=== PATIENT | female | born 1985 | race Two or more races ===

== ENCOUNTER 2020-03-13 19:56 | Inpatient (IN) | payer OTHER, MEDICAID ==
[~2020-03-13] VITALS: Ht 165.1 cm; Wt 85.4 kg
[2020-03-13] MEDS ORDERED: SODIUM CHLORIDE 0.9% 1,000 ML IV ONE ×2 (20:30→21:06)
[2020-03-13] MEDS ORDERED: ONDANSETRON HCL 4MG/2ML INJ IV STA (21:06)
[2020-03-13] MEDS ORDERED: AZITHROMYCIN 500 MG in DEXT 5% WATER 250 ML IV SCH (21:15)
[2020-03-13 21:43] LABS: BASOPHILS % 0.5 % (0.0-2.0); EOSINOPHILS % 0.2 % (0.0-5.0); HEMATOCRIT. 28.4 % (36.0-48.0); HEMOGLOBIN. 9.8 g/dL (12.0-16.0); LYMPHOCYTES % 14.1 % (20.0-50.0); MEAN CORPUSCULAR HEMOGLOBIN 31.8 pg (28.0-32.0); MEAN PLATELET VOLUME 7.8 fl (7.4-10.4); MONOCYTES % 4.7 % (2.0-8.0); NEUTROPHILS % 80.5 % (40.0-76.0); PLATELET 346 x1000/uL (130-400); RED BLOOD CELL COUNT 3.09 mill/uL (4.2-5.4); RED CELL DISTRIBUTION WIDTH 12.7 % (11.6-14.6)
[2020-03-13 21:46] LABS: CLARITY URINE CLOUDY (CLEAR); COLOR URINE YELLOW (YELLOW); KETONES URINE 1+ (NEGATIVE); LEUKOCYTE ESTERASE URINE 2+ (NEGATIVE); NITRITE URINE NEGATIVE (NEGATIVE); OCCULT BLOOD URINE 3+ (NEGATIVE); PROTEIN URINE 1+ (NEGATIVE); SPECIFIC GRAVITY URINE 1.031 (1.005-1.030)
[2020-03-13 21:50] LABS: CHLORIDE 106 mEq/L (98-107)
[2020-03-13 21:53] LABS: D-DIMER 0.34 mg/L FEU (<0.50); INR 1.3; PROTHROMBIN TIME 13.1 sec (9.6-11.0)
[2020-03-13 21:54] LABS: HCG SCREEN NEGATIVE
[2020-03-13 22:06] LABS: *AMPHETAMINES SCREEN URINE NEGATIVE (NEGATIVE); *BARBITURATES SCREEN URINE NEGATIVE (NEGATIVE); PHENCYCLIDINE URINE SCREEN NEGATIVE (NEGATIVE)
[2020-03-13 22:08] LABS: *BENZODIAZEPINES SCREEN URINE NEGATIVE (NEGATIVE); *COCAINE SCREEN URINE NEGATIVE (NEGATIVE); METHADONE URINE SCREEN NEGATIVE (NEGATIVE); OPIATES URINE SCREEN NEGATIVE (NEGATIVE)
[2020-03-13 22:09] LABS: CANNABINOID URINE SCREEN PRESUMTIVE POSITIVE (NEGATIVE)
[2020-03-13] MEDS ORDERED: ACETAMINOPHEN 325MG TABLET PO PRN (23:00)
[2020-03-13] MEDS ORDERED: MAGNESIUM/ALUMINUM HYDROXIDE/SIMETHICONE 30ML UDC PO PRN (23:00)
[2020-03-13] MEDS ORDERED: ONDANSETRON HCL 4MG/2ML INJ IV PRN (23:00)
[2020-03-13] MEDS ORDERED: HYDROCODONE/ACETAMINOPHEN 5/325MG TABLET PO PRN (23:00)
[2020-03-13] MEDS ORDERED: IPRATROPIUM/ALBUTEROL 0.5-3(2.5)MG/3ML NEB NEB PRN (23:00)
[2020-03-13] MEDS ORDERED: IOHEXOL-300 100 ML BOTTLE ONE (23:18)
[2020-03-14 01:43] LABS: HEPATITIS B SURFACE ANTIGEN NEGATIVE
[2020-03-14] MEDS: SODIUM CHLORIDE 0.9% 1,000 ML IV SCH ×3 (01:54→19:00)
[2020-03-14] MEDS: METRONIDAZOLE 500 MG PREMIX 100 ML IV SCH ×4 (02:10→23:24)
[2020-03-14 02:12] LABS: HEPATITIS A AB IGM NEGATIVE (NEGATIVE)
[2020-03-14] MEDS ORDERED: CEFTRIAXONE 1,000 MG in DEXTROSE 5% WATER 50 ML IV SCH ×3 (04:00)
[2020-03-14 05:26] LABS: BASOPHILS % 0.6 % (0.0-2.0); EOSINOPHILS % 0.3 % (0.0-5.0); LYMPHOCYTES % 20.5 % (20.0-50.0); MEAN CORPUSCULAR HEMOGLOBIN 32.6 pg (28.0-32.0); MEAN PLATELET VOLUME 7.8 fl (7.4-10.4); MONOCYTES % 8.5 % (2.0-8.0); NEUTROPHILS % 70.1 % (40.0-76.0); PLATELET 246 x1000/uL (130-400); RED CELL DISTRIBUTION WIDTH 12.7 % (11.6-14.6)
[2020-03-14 05:31] LABS: CHLORIDE 115 mEq/L (98-107)
[2020-03-14 05:33] LABS: ETHANOL BLOOD < 10 mg/dL
[2020-03-14 05:38] LABS: LDL CHOLESTEROL 49 mg/dL (5-100)
[2020-03-14 05:39] LABS: HDL CHOLESTEROL 38 mg/dL (40-59); TOTAL IRON BINDING CAPACITY 230 ug/dL (250-450)
[2020-03-14 05:40] LABS: CREATINE KINASE 76 IU/L (26-192); HEMATOCRIT. 19.3 % (36.0-48.0); HEMOGLOBIN. 6.8 g/dL (12.0-16.0)
[2020-03-14 05:41] LABS: CREATINE KINASE MB FRACTION < 1.0 ng/mL (0.5-3.6)
[2020-03-14 10:17] VITALS: BP 115/50
[2020-03-14 12:00] VITALS: BP_SYST 101; BP_SYST 104; BP_DIAS 44; BP_DIAS 51
[2020-03-14 17:56] LABS: MEAN CORPUSCULAR HEMOGLOBIN 32.3 pg (28.0-32.0); MEAN CORPUSCULAR VOLUME 92.8 fL (81.0-99.0); PLATELET 236 x1000/uL (130-400); RED BLOOD CELL COUNT 2.04 mill/uL (4.2-5.4); RED CELL DISTRIBUTION WIDTH 12.7 % (11.6-14.6)
[2020-03-14 17:59] LABS: HEMOGLOBIN 6.6 g/dL (12.0-16.0)
[2020-03-14 18:13] LABS: CREATINE KINASE 85 IU/L (26-192)
[2020-03-14 18:14] LABS: CREATINE KINASE MB FRACTION < 1.0 ng/mL (0.5-3.6)
[2020-03-14 20:00] VITALS: BP 112/61
[2020-03-15] VITALS (15 sets, daily range): BP systolic 95–137; BP diastolic 35–91
[2020-03-15] MEDS: SODIUM CHLORIDE 0.9% 1,000 ML IV SCH ×2 (05:00→14:06)
[2020-03-15 05:08] LABS: HIV SCREEN 4G Non Reactive (Non Reactive)
[2020-03-15] MEDS: METRONIDAZOLE 500 MG PREMIX 100 ML IV SCH ×3 (06:34→20:38)
[2020-03-15 10:08] LABS: BASOPHILS % 0.5 % (0.0-2.0); EOSINOPHILS % 1.4 % (0.0-5.0); LYMPHOCYTES % 24.4 % (20.0-50.0); MEAN CORPUSCULAR HEMOGLOBIN 32.3 pg (28.0-32.0); MEAN CORPUSCULAR VOLUME 93.6 fL (81.0-99.0); MEAN PLATELET VOLUME 7.5 fl (7.4-10.4); MONOCYTES % 7.3 % (2.0-8.0); NEUTROPHILS % 66.4 % (40.0-76.0); PLATELET 275 x1000/uL (130-400); RED BLOOD CELL COUNT 2.12 mill/uL (4.2-5.4); RED CELL DISTRIBUTION WIDTH 12.6 % (11.6-14.6)
[2020-03-15 10:16] LABS: HEMATOCRIT. 19.9 % (36.0-48.0); HEMOGLOBIN. 6.8 g/dL (12.0-16.0)
[2020-03-15 10:17] LABS: CHLORIDE 113 mEq/L (98-107)
[2020-03-16] VITALS (12 sets, daily range): BP systolic 91–148; BP diastolic 35–77
[2020-03-16 01:51] LABS: FOLIC ACID (FOLATE) SERUM >20 ng/mL ng/mL (>5.38)
[2020-03-16 02:03] LABS: VITAMIN B12 SERUM 1530 pg/mL (211-911)
[2020-03-16] MEDS: SODIUM CHLORIDE 0.9% 1,000 ML IV SCH ×2 (03:32→21:04)
[2020-03-16] MEDS: METRONIDAZOLE 500 MG PREMIX 100 ML IV SCH ×3 (05:23→20:57)
[2020-03-16 07:17] LABS: BASOPHILS % 0.6 % (0.0-2.0); EOSINOPHILS % 2.7 % (0.0-5.0); HEMATOCRIT. 22.8 % (36.0-48.0); HEMOGLOBIN. 7.9 g/dL (12.0-16.0); LYMPHOCYTES % 24.4 % (20.0-50.0); MEAN CORPUSCULAR HEMOGLOBIN 31.7 pg (28.0-32.0); MEAN CORPUSCULAR VOLUME 91.3 fL (81.0-99.0); MEAN PLATELET VOLUME 7.6 fl (7.4-10.4); MONOCYTES % 7.3 % (2.0-8.0); PLATELET 269 x1000/uL (130-400); RED CELL DISTRIBUTION WIDTH 13.7 % (11.6-14.6)
[2020-03-16 07:22] LABS: CHLORIDE 114 mEq/L (98-107)
[2020-03-16] MEDS ORDERED: POTASSIUM CHLORIDE 20MEQ TABLET SR PO NR (09:30)
[2020-03-16] MEDS ORDERED: POTASSIUM CHLORIDE INJ 40 MEQ in DEXT 5% WATER 250 ML IV NR (10:00)
[2020-03-16] MEDS ORDERED: METOCLOPRAMIDE HCL 10MG/2ML VIAL IV NR (10:15)
[2020-03-16] MEDS ORDERED: MIDAZOLAM HCL 5 MG/5 ML VIAL ONE (13:10)
[2020-03-16] MEDS ORDERED: MIDAZOLAM HCL 5 MG/5 ML VIAL IV PRN (13:10)
[2020-03-16] MEDS ORDERED: FENTANYL CITRATE/PF 50MCG/ML 2ML VIAL IV PRN (13:11)
[2020-03-16] MEDS ORDERED: FENTANYL CITRATE/PF 50MCG/ML 2ML VIAL ONE (13:11)
[2020-03-16] MEDS ORDERED: DIAZEPAM 5 MG/ML 2ML CPJ ONE ×2 (13:12→13:22)
[2020-03-16] MEDS ORDERED: DIAZEPAM 5 MG/ML 2ML CPJ IV PRN (13:12)
[2020-03-16] MEDS: AZITHROMYCIN 500 MG in DEXT 5% WATER 250 ML IV SCH (14:55)
[2020-03-16] MEDS: PANTOPRAZOLE SODIUM 40 MG/VIAL IV SCH (16:45)
[2020-03-16] MEDS: SUCRALFATE 1 G/10 ML UDC PO SCH ×2 (16:46→20:56)
[2020-03-17] VITALS (10 sets, daily range): BP systolic 104–135; BP diastolic 57–86
[2020-03-17] MEDS: METRONIDAZOLE 500 MG PREMIX 100 ML IV SCH (05:49)
[2020-03-17] MEDS: SODIUM CHLORIDE 0.9% 1,000 ML IV SCH ×2 (05:50→07:00)
[2020-03-17 06:30] LABS: CHLORIDE 113 mEq/L (98-107)
[2020-03-17 07:08] LABS: BASOPHILS % 0.5 % (0.0-2.0); EOSINOPHILS % 2.2 % (0.0-5.0); HEMATOCRIT. 24.8 % (36.0-48.0); HEMOGLOBIN. 8.8 g/dL (12.0-16.0); MEAN CORPUSCULAR HEMOGLOBIN 32.2 pg (28.0-32.0); MEAN CORPUSCULAR VOLUME 91.3 fL (81.0-99.0); MEAN PLATELET VOLUME 7.6 fl (7.4-10.4); NEUTROPHILS % 70.3 % (40.0-76.0); PLATELET 350 x1000/uL (130-400); RED BLOOD CELL COUNT 2.72 mill/uL (4.2-5.4); RED CELL DISTRIBUTION WIDTH 14.2 % (11.6-14.6)
[2020-03-17] MEDS: SUCRALFATE 1 G/10 ML UDC PO SCH ×2 (07:30→12:29)
[2020-03-17] MEDS: PANTOPRAZOLE SODIUM 40 MG/VIAL IV SCH (09:01)
[2020-03-17] MEDS: AZITHROMYCIN 500 MG in DEXT 5% WATER 250 ML IV SCH (11:08)
[2020-03-17] MEDS ORDERED: POTASSIUM CHLORIDE 20MEQ TABLET SR PO SCH (12:00)
[2020-03-17] MEDS ORDERED: SUCR1ORA15 PO (12:20)
[2020-03-17] MEDS ORDERED: PANT40TA4 MT (12:20)
[2020-03-17] MEDS ORDERED: CALC-25 PO (12:20)
[2020-03-18] MEDS ORDERED: CALCIUM CARBONATE 1250MG TABLET (500MG ELEMENTAL CALCIUM) PO SCH (09:00)
[2020-03-20 09:10] LABS: ANA IFA Negative (.)
== END 2020-03-17 18:28 | disposition home or self-care (01) | DRG 378 ==
LOC: ER 19:56 → MICUSO 21:49 → EDBEDREQ 22:01 → EDBEDREQTM 22:01 → 7WST 03-14 07:57 → 8WST 03-14 18:43 → 5EST 03-14 22:00
PROVIDERS: ADMIT Internal Medicine; ATTEND Internal Medicine
PROC: 30233N1 Transfusion of Nonautologous Red Blood Cells into Peripheral Vein, Percutaneous Approach (ICD-10-PCS; 2020-03-15)
PROC: 0DB98ZX Excision of Duodenum, Via Natural or Artificial Opening Endoscopic, Diagnostic (ICD-10-PCS; principal; 2020-03-16)
PROC: 0DB68ZX Excision of Stomach, Via Natural or Artificial Opening Endoscopic, Diagnostic (ICD-10-PCS; 2020-03-16)
DX: K29.71 Gastritis, unspecified, with bleeding (principal); D62 Acute posthemorrhagic anemia; N39.0 Urinary tract infection, site not specified; K52.9 Noninfective gastroenteritis and colitis, unspecified; D64.9 Anemia, unspecified; F12.90 Cannabis use, unspecified, uncomplicated; K31.89 Other diseases of stomach and duodenum; R74.0 Nonspecific elevation of levels of transaminase and lactic acid dehydrogenase [LDH]; Z20.828 Contact with and (suspected) exposure to other viral communicable diseases; Z79.899 Other long term (current) drug therapy
CPT/HCPCS: 36415; 71045; 74177; 76700; 80048; 80053; 80061; 80305; 80320; 81003; 82270; 82550; 82553; 82607; 82728; 82746; 83036; 83540; 83550; 83605; 83880; 84132; 84443; 84484; 84703; 85025; 85027; 85044; 85379; 86256; 86705; 86709; 86803; 86850; 86900; 86920; 87015; 87045; 87340; 87389; 87427; 87449; 87635; 88305; 88313; 89055; 93005; 93970; 99285; C9113; J0456; J0696; J2250; J2405; J2765; J3010; J3480; J3490; J7030; J7060; P9016; Q9967; G0480